=== PATIENT | female | born 1990 | race Two or more races ===

== ENCOUNTER 2017-09-03 20:31 | Inpatient (IN) | payer OTHER ==
[2017-09-03 21:26] VITALS: BMI 24.1
--- NOTE | 2017-09-03 21:57 | HP ---
CIWA Score - CIWA Score Nausea/Vomitin Muscle Tremors: 5 Anxiety: 5 Agitation: 4-Moderately Restless Paroxysmal Sweats: 3 Orientation: 0-Oriented Tacttile Disturbances: 2-Mild Itch/Numbness/Burn Auditory Disturbances: 2-Mild Harshness/Frighten Visual Disturbances: 0-None Headache: 2-Mild CIWA-Ar Total Score: 26 Admission ROS BHS - HPI Chief Complaint: C/O WITHDRAWAL SX'S. SEEKING DETOX FOR ALCOHOLISM. Allergies/Adverse Reactions: Allergies Allergy/AdvReac Type Severity Reaction Status Date / Time chocolate flavor Allergy Verified 09/03/17 21:49 peanut Allergy Verified 09/03/17 21:49 nut - unspecified AdvReac Verified 09/03/17 21:49 History of Present Illness: 27 Y.O FEMALE WITH LONG HX/O ALCOHOLISM ADMITTED TO DETOX. CLIENT WAS REFERRED BY [facility]. SHE REPORTS THAT SHE AMA FROM I AFTER 3 DAYS OF DETOX 1 DAY AGO DUE TO PERSONAL ISSUES. REPORTS PENDING LEGAL ISSUES. REPORTS LONGEST CLEAN TIME 6 MONTHS RELAPSING 10 MONTHS AGO. Exam Limitations: No Limitations - Ebola screening Have you traveled outside of the country in the last 21 days: No Have you had contact with anyone from an Ebola affected area: No Have you been sick,other than usual withdrawal symptoms: No Do you have a fever: No - Review of Systems Constitutional: Chills, Loss of Appetite, Malaise, Night Sweats EENT: reports: No Symptoms Reported Respiratory: reports: No Symptoms reported Cardiac: reports: No Symptoms Reported GI: reports: Nausea, Poor Appetite, Poor Fluid Intake, Vomiting : reports: No Symptoms Reported Musculoskeletal: reports: Back Pain Integumentary: reports: Dryness Neuro: reports: Seizure (ETOH RELATED SEIZURES) Endocrine: reports: No Symptoms Reported Hematology: reports: Easy Bruising Psychiatric: reports: Agitated, Anxious, Depressed Other Systems: Reviewed and Negative Patient History - Patient Medical History Hx Anemia: No Hx Asthma: Yes Hx Chronic Obstructive Pulmonary Disease (COPD): No Hx Cancer: No Hx Cardiac Disorders: No Hx Congestive Heart Failure: No Hx Hypertension: No Hx Hypercholesterolemia: No Hx Pacemaker: No HX Cerebrovascular Accident: No Hx Seizures: Yes (ETOH WITHDRAWAL REPORTS LAST SEIZURE TODAY) Hx Dementia: No Hx Diabetes: No Hx Gastrointestinal Disorders: Yes (PANCREATITIS) Hx Liver Disease: No Hx Genitourinary Disorders: No Hx Sexually Transmitted Disorders: No Hx Renal Disease (ESRD): No Hx Thyroid Disease: No Hx Human Immunodeficiency Virus (HIV): No Hx Hepatitis C: No Hx Depression: Yes Hx Suicide Attempt: No (PRESENTLY DENIES) Hx Bipolar Disorder: No Hx Schizophrenia: No Other Medical History: POST DEPRESSION - Patient Surgical History Past Surgical History: Yes Hx Section: Yes Anesthesia Reaction: No - PPD History Previous Implant?: Yes Documented Results: Negative w/o proof Implanted On Prior [facility] Admission?: No PPD to be Administered?: Yes - Reproductive History Patient is a Female of Child Bearing Age (11 -55 yrs old): Yes Last Menstrual Period: 08/27/17 Patient : No ([facility] [place]) - Smoking Cessation Smoking history: Current some day smoker Have you smoked in the past 12 months: Yes Aproximately how many cigarettes per day: 2 Cigars Per Day: 0 Hx Chewing Tobacco Use: No Initiated information on smoking cessation: Yes 'Breaking Loose' booklet given: 09/03/17 - Substance & Tx. History Hx Alcohol Use: Yes Hx Substance Use: No Substance Use Type: Alcohol Hx Substance Use Treatment: Yes ([facility]) - Substances Abused VODKA/ BEER Route: Oral Frequency: Daily Amount used: 1 PINT/ 12 PACK Age of first use: 24 Date of Last Use: 09/03/17 Family Disease History - Family Disease History Family History: Denies Admission Physical Exam BHS - Vital Signs Vital Signs: Vital Signs - 24 hr 09/03/17 21:24 Temperature 98.2 F Pulse Rate 105 H Respiratory 18 Rate Blood Pressure 129/83 - Physical General Appearance: Yes: Moderate Distress, Alcohol on Breath, Intoxicated, Tremorous, Irritable, Anxious, Other (DISHELVED) HEENTM: Yes: EOMI, Normocephalic, Normal Voice, JANINA, Pharynx Normal Respiratory: Yes: Chest Non-Tender, Lungs Clear, Normal Breath Sounds, No Respiratory Distress, No Accessory Muscle Use Neck: Yes: No masses,lesions,Nodules, Supple, Trachea in good position Breast: Yes: Breast Exam Deferred Cardiology: Yes: Regular Rhythm, S1, S2, Tachycardia Abdominal: Yes: Normal Bowel Sounds, Non Tender, Flat, Soft, Surgical Scar Genitourinary: Yes: Within Normal Limits Back: Yes: Normal Inspection Musculoskeletal: Yes: full range of Motion, Gait Steady Extremities: Yes: Normal Capillary Refill, Normal Range of Motion, Non-Tender, Tremors Neurological: Yes: harbour master II-XII NML intact, Fully Oriented, Alert, Motor Strength 5/5 Integumentary: Yes: Normal Color, Dry, Warm, Other (ECCHYMOTIC AREAS NOTED TO LUE) Lymphatic: Yes: Within Normal Limits - Diagnostic (1) Alcohol dependence with uncomplicated withdrawal Current Visit: Yes Status: Chronic (2) Nicotine dependence Current Visit: Yes Status: Chronic Qualifiers: Nicotine product type: cigarettes Substance use status: uncomplicated Qualified Code(s): F17.210 - Nicotine dependence, cigarettes, uncomplicated (3) Asthma Current Visit: Yes Status: Chronic Qualifiers: Asthma severity: mild Asthma persistence: intermittent Asthma complication type: unspecified Qualified Code(s): J45.20 - Mild intermittent asthma, uncomplicated (4) Alcohol related seizure Current Visit: Yes Status: Chronic Cleared for Admission [facility] - Detox or Rehab [facility] Level of Care: Medically Managed Detox Regimen/Protocol: Librium Claeared for Rehab Admission: No S Breath Alcohol Content Breath Alcohol Content: 0.206 Urine Pregancy Test - Result Urine Test Results: Negative- NO Line Present Urine Drug Screen - Results Drug Screen Negative: No Urine Drug Screen Results: BZO-Benzodiazepines
[2017-09-03] MEDS ORDERED: chlordiazePOXIDE HCL 25 MG CAPSULE PO PRN (22:13)
[2017-09-03] MEDS ORDERED: MAGNESIUM HYDROX 2400MG/30ML ORAL SUSPENSION 30 ML CUP PO PRN (22:13)
[2017-09-03] MEDS ORDERED: IBUPROFEN 400 MG TABLET (FP) PO PRN (22:13)
[2017-09-03] MEDS ORDERED: LOPERAMIDE HCL 2 MG CAPSULE PO PRN (22:13)
[2017-09-03] MEDS ORDERED: NICOTINE POLACRILEX 2 MG GUM BC PRN (22:13)
[2017-09-03] MEDS ORDERED: ACETAMINOPHEN 325 MG TABLET (FP) PO PRN (22:13)
[2017-09-03] MEDS ORDERED: P-EPHED 60MG/TRIPROLIDI 2.5MG TABLET PO PRN (22:13)
[2017-09-03] MEDS ORDERED: MAG HYDROX/AL HYDROX/SIMETH 30 ML UNIT-DOSE CUP PO PRN (22:13)
[2017-09-03] MEDS ORDERED: MAGNESIUM CITRATE 300 ML BOTTLE PO PRN (22:13)
[2017-09-03] MEDS ORDERED: ALBUTEROL SO4 2.5/IPRATROPIUM 0.5 INH SOL 3 ML VIAL.NEB. NEB PRN (22:17)
[2017-09-03] MEDS: chlordiazePOXIDE HCL 25 MG CAPSULE PO SCH (23:44)
[2017-09-03] MEDS: levETIRAcetam 500 MG TABLET (FP) PO SCH (23:44)
[2017-09-04 00:01] LABS: URINE APPEARANCE CLOUDY; URINE BILIRUBIN NEGATIVE (NEGATIVE); URINE BLOOD NEGATIVE (NEGATIVE); URINE COLOR YELLOW; URINE GLUCOSE (UA) NEGATIVE (NEGATIVE); URINE KETONE NEGATIVE (NEGATIVE); URINE NITRITE NEGATIVE (NEGATIVE); URINE PROTEIN NEGATIVE (NEGATIVE); URINE UROBILINOGEN NEGATIVE mg/dL (0.2-1.0)
[2017-09-04 00:12] LABS: URINE LEUK ESTERASE 1+ (NEGATIVE)
[2017-09-04 00:22] LABS: EPI CELLS MANY /HPF (FEW); URINE BACTERIA RARE /hpf (NONE SEEN); URINE MUCUS FEW
[2017-09-04 00:45] LABS: AMORP URATES MODERATE /hpf (NONE SEEN)
[2017-09-04] MEDS: hydrOXYzine PAMOATE 50 MG CAPSULE (FP) PO PRN ×2 (01:14→22:02)
[2017-09-04] MEDS: chlordiazePOXIDE HCL 25 MG CAPSULE PO SCH ×4 (05:38→22:02)
[2017-09-04] MEDS: MENTHOL/PHENOL 1 EACH UD MM PRN (07:07)
--- NOTE | 2017-09-04 09:05 | PN ---
S CIWA - CIWA Score Nausea/Vomitin-Mild Nausea/No Vomiting Muscle Tremors: 5 Anxiety: 4-Mod. Anxious/Guarded Agitation: 5 Paroxysmal Sweats: 2 Orientation: 1-Uncertain about Date Tacttile Disturbances: 1-Very Mild Itch/Numbness Auditory Disturbances: 0-None Visual Disturbances: 0-None Headache: 1-Very Mild CIWA-Ar Total Score: 20 BHS Progress Note (SOAP) Subjective: tremor anxiety agitation restlessness Objective: 09/04/17 09:07 Vital Signs Temperature 97.7 F 09/04/17 06:00 Pulse Rate 101 H 09/04/17 06:00 Respiratory Rate 18 09/04/17 06:00 Blood Pressure 132/75 09/04/17 06:00 O2 Sat by Pulse Oximetry (%) Laboratory Last Values Urine Color Yellow 09/03/17 23:30 Urine Appearance Cloudy 09/03/17 23:30 Urine pH 5.0 (5.0-8.0) 09/03/17 23:30 Ur Specific [place] 1.014 (1.001-1.035) 09/03/17 23:30 Urine Protein Negative (NEGATIVE) 09/03/17 23:30 Urine Glucose (UA) Negative (NEGATIVE) 09/03/17 23:30 Urine Ketones Negative (NEGATIVE) 09/03/17 23:30 Urine Blood Negative (NEGATIVE) 09/03/17 23:30 Urine Nitrite Negative (NEGATIVE) 09/03/17 23:30 Urine Bilirubin Negative (NEGATIVE) 09/03/17 23:30 Urine Urobilinogen Negative mg/dL (0.2-1.0) 09/03/17 23:30 Ur Leukocyte Esterase 1+ (NEGATIVE) H 09/03/17 23:30 Urine WBC (Auto) 4 /hpf (3-5) 09/03/17 23:30 Urine RBC (Auto) 3 /hpf (0-3) 09/03/17 23:30 Ur Epithelial Cells Many /HPF (FEW) 09/03/17 23:30 Amorphous Urates Moderate /hpf (NONE SEEN) 09/03/17 23:30 Urine Bacteria Rare /hpf (NONE SEEN) 09/03/17 23:30 Urine Mucus Few 09/03/17 23:30 lab noted Assessment: 09/04/17 09:08 withdrawal sx Plan: continue detox
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
[2017-09-04] MEDS: PRENATAL VITAMINS W/ FOLIC ACID TABLET (FP) PO SCH (10:14)
[2017-09-04] MEDS: levETIRAcetam 500 MG TABLET (FP) PO SCH ×2 (10:15→22:01)
[2017-09-04] MEDS: NICOTINE 14 MG/24 HOURS TOPICAL PATCH TD SCH (10:17)
[2017-09-04 10:35] LABS: HEMATOCRIT 36.9 % (32.4-45.2); HEMOGLOBIN 11.9 GM/dL (10.7-15.3); MCH 29.9 pg (25.7-33.7); MCHC 32.2 g/dl (32.0-36.0); MEAN CELL VOLUME 93.1 fl (80-96); MEAN PLT VOLUME 10.4 fl (7.5-11.1); PLATELET COUNT 107 K/MM3 (134-434); RBC 3.96 M/mm3 (3.60-5.2); RDW 17.6 % (11.6-15.6); WHITE BLOOD COUNT 5.4 K/mm3 (4.0-10.0)
[2017-09-04 10:52] LABS: ALBUMIN 3.2 g/dl (3.4-5.0); ANION GAP 11 (8-16); BLOOD UREA NITROGEN 11 mg/dL (7-18); CALCIUM 8.2 mg/dL (8.5-10.1); CHLORIDE 104 mmol/L (98-107); CO2 26 mmol/L (21-32); POTASSIUM 3.6 mmol/L (3.5-5.1); SODIUM 141 mmol/L (136-145)
[2017-09-04 10:58] LABS: ALK PHOS 91 U/L (45-117); BILIRUBIN,TOTAL 0.5 mg/dL (0.2-1.0); CREATININE 0.8 mg/dL (0.55-1.02); GLUCOSE,RANDOM 75 mg/dL (74-106); SGOT/AST 48 U/L (15-37); SGPT/ALT 50 U/L (12-78); TOT PROT 6.8 g/dl (6.4-8.2)
--- NOTE | 2017-09-04 11:42 | EKG ---
Test Reason : Blood Pressure : / mmHG Vent. Rate : 095 BPM Atrial Rate : 095 BPM P-R Int : 140 ms QRS Dur : 072 ms QT Int : 346 ms P-R-T Axes : 056 050 043 degrees QTc Int : 434 ms NORMAL SINUS RHYTHM NORMAL ECG NO PREVIOUS ECGS AVAILABLE Confirmed by MD ITA, CELINA ([id number]) on 09/04/2017 11:42:08 AM Referred By: Dante Royal Confirmed By:CELINA JEAN BAPTISTE MD
[2017-09-04] MEDS: guaiFENesin/D-METHORPHAN HB 10 ML UNIT-DOSE CUPS PO PRN (18:20)
[2017-09-04] MEDS: THIAMINE HCL 100 MG TABLET (FP) PO SCH (22:01)
[2017-09-04] MEDS: ALBUTEROL SO4 18 GM HFA INHALER IH PRN (22:05)
[2017-09-05] MEDS: MENTHOL/PHENOL 1 EACH UD MM PRN ×3 (02:24→15:27)
[2017-09-05] MEDS: chlordiazePOXIDE HCL 25 MG CAPSULE PO SCH ×3 (05:32→17:37)
[2017-09-05] MEDS: guaiFENesin/D-METHORPHAN HB 10 ML UNIT-DOSE CUPS PO PRN ×3 (05:33→22:04)
[2017-09-05] MEDS: levETIRAcetam 500 MG TABLET (FP) PO SCH ×2 (10:12→22:03)
[2017-09-05] MEDS: NICOTINE 14 MG/24 HOURS TOPICAL PATCH TD SCH (10:12)
[2017-09-05] MEDS: PRENATAL VITAMINS W/ FOLIC ACID TABLET (FP) PO SCH (10:12)
--- NOTE | 2017-09-05 11:14 | PN ---
S CIWA - CIWA Score Nausea/Vomitin Muscle Tremors: 3 Anxiety: 3 Agitation: 3 Paroxysmal Sweats: 2 Orientation: 0-Oriented Tacttile Disturbances: 0-None Auditory Disturbances: 0-None Visual Disturbances: 0-None Headache: 0-None Present CIWA-Ar Total Score: 14 BHS Progress Note (SOAP) Subjective: SHAKES, SWEATS ITCH/PAIN TO THROAT Objective: 09/05/17 11:11 Vital Signs Temperature 97.5 F L 09/05/17 10:23 Pulse Rate 92 H 09/05/17 10:23 Respiratory Rate 18 09/05/17 10:23 Blood Pressure 139/80 09/05/17 10:23 O2 Sat by Pulse Oximetry (%) Laboratory Last Values WBC 5.4 K/mm3 (4.0-10.0) 09/04/17 07:30 RBC 3.96 M/mm3 (3.60-5.2) 09/04/17 07:30 Hgb 11.9 GM/dL (10.7-15.3) 09/04/17 07:30 Hct 36.9 % (32.4-45.2) 09/04/17 07:30 MCV 93.1 fl (80-96) 09/04/17 07:30 MCH 29.9 pg (25.7-33.7) 09/04/17 07:30 MCHC 32.2 g/dl (32.0-36.0) 09/04/17 07:30 RDW 17.6 % (11.6-15.6) H 09/04/17 07:30 Plt Count 107 K/MM3 (134-434) L 09/04/17 07:30 MPV 10.4 fl (7.5-11.1) 09/04/17 07:30 Sodium 141 mmol/L (136-145) 09/04/17 07:30 Potassium 3.6 mmol/L (3.5-5.1) 09/04/17 07:30 Chloride 104 mmol/L (98-107) 09/04/17 07:30 Carbon Dioxide 26 mmol/L (21-32) 09/04/17 07:30 Anion Gap 11 (8-16) 09/04/17 07:30 BUN 11 mg/dL (7-18) 09/04/17 07:30 Creatinine 0.8 mg/dL (0.55-1.02) 09/04/17 07:30 Creat Clearance w eGFR > 60 (>60) 09/04/17 07:30 Random Glucose 75 mg/dL (74-106) 09/04/17 07:30 Calcium 8.2 mg/dL (8.5-10.1) L 09/04/17 07:30 Total Bilirubin 0.5 mg/dL (0.2-1.0) 09/04/17 07:30 AST 48 U/L (15-37) H 09/04/17 07:30 ALT 50 U/L (12-78) 09/04/17 07:30 Alkaline Phosphatase 91 U/L (45-117) 09/04/17 07:30 Total Protein 6.8 g/dl (6.4-8.2) 09/04/17 07:30 Albumin 3.2 g/dl (3.4-5.0) L 09/04/17 07:30 Urine Color Yellow 09/03/17 23:30 Urine Appearance Cloudy 09/03/17 23:30 Urine pH 5.0 (5.0-8.0) 09/03/17 23:30 Ur Specific [place] 1.014 (1.001-1.035) 09/03/17 23:30 Urine Protein Negative (NEGATIVE) 09/03/17 23:30 Urine Glucose (UA) Negative (NEGATIVE) 09/03/17 23:30 Urine Ketones Negative (NEGATIVE) 09/03/17 23:30 Urine Blood Negative (NEGATIVE) 09/03/17 23:30 Urine Nitrite Negative (NEGATIVE) 09/03/17 23:30 Urine Bilirubin Negative (NEGATIVE) 09/03/17 23:30 Urine Urobilinogen Negative mg/dL (0.2-1.0) 09/03/17 23:30 Ur Leukocyte Esterase 1+ (NEGATIVE) H 09/03/17 23:30 Urine WBC (Auto) 4 /hpf (3-5) 09/03/17 23:30 Urine RBC (Auto) 3 /hpf (0-3) 09/03/17 23:30 Ur Epithelial Cells Many /HPF (FEW) 09/03/17 23:30 Amorphous Urates Moderate /hpf (NONE SEEN) 09/03/17 23:30 Urine Bacteria Rare /hpf (NONE SEEN) 09/03/17 23:30 Urine Mucus Few 09/03/17 23:30 RPR Titer Nonreactive (NONREACTIVE) 09/04/17 07:30 LABS NOTED Assessment: 09/05/17 11:13 WITHDRAWAL SX SORE THROAT Plan: CONTINUE DETOX PAIN MEDS THROAT CULTURE
[2017-09-05] MEDS: ALBUTEROL SO4 18 GM HFA INHALER IH PRN (19:44)
[2017-09-05] MEDS: THIAMINE HCL 100 MG TABLET (FP) PO SCH (22:03)
[2017-09-05] MEDS: chlordiazePOXIDE 5 MG CAPSULE PO SCH (22:03)
[2017-09-06] MEDS: MENTHOL/PHENOL 1 EACH UD MM PRN ×2 (03:27→12:45)
[2017-09-06] MEDS: chlordiazePOXIDE 5 MG CAPSULE PO SCH ×3 (05:11→18:00)
[2017-09-06] MEDS: guaiFENesin/D-METHORPHAN HB 10 ML UNIT-DOSE CUPS PO PRN ×3 (05:13→22:11)
--- NOTE | 2017-09-06 09:22 | PN ---
BHS Progress Note (SOAP) Subjective: sweat tremor throat hurts Objective: 09/06/17 09:20 Vital Signs Temperature 97.3 F L 09/06/17 06:10 Pulse Rate 71 09/06/17 06:10 Respiratory Rate 18 09/06/17 06:10 Blood Pressure 111/59 09/06/17 06:10 O2 Sat by Pulse Oximetry (%) Laboratory Last Values WBC 5.4 K/mm3 (4.0-10.0) 09/04/17 07:30 RBC 3.96 M/mm3 (3.60-5.2) 09/04/17 07:30 Hgb 11.9 GM/dL (10.7-15.3) 09/04/17 07:30 Hct 36.9 % (32.4-45.2) 09/04/17 07:30 MCV 93.1 fl (80-96) 09/04/17 07:30 MCH 29.9 pg (25.7-33.7) 09/04/17 07:30 MCHC 32.2 g/dl (32.0-36.0) 09/04/17 07:30 RDW 17.6 % (11.6-15.6) H 09/04/17 07:30 Plt Count 107 K/MM3 (134-434) L 09/04/17 07:30 MPV 10.4 fl (7.5-11.1) 09/04/17 07:30 Sodium 141 mmol/L (136-145) 09/04/17 07:30 Potassium 3.6 mmol/L (3.5-5.1) 09/04/17 07:30 Chloride 104 mmol/L (98-107) 09/04/17 07:30 Carbon Dioxide 26 mmol/L (21-32) 09/04/17 07:30 Anion Gap 11 (8-16) 09/04/17 07:30 BUN 11 mg/dL (7-18) 09/04/17 07:30 Creatinine 0.8 mg/dL (0.55-1.02) 09/04/17 07:30 Creat Clearance w eGFR > 60 (>60) 09/04/17 07:30 Random Glucose 75 mg/dL (74-106) 09/04/17 07:30 Calcium 8.2 mg/dL (8.5-10.1) L 09/04/17 07:30 Total Bilirubin 0.5 mg/dL (0.2-1.0) 09/04/17 07:30 AST 48 U/L (15-37) H 09/04/17 07:30 ALT 50 U/L (12-78) 09/04/17 07:30 Alkaline Phosphatase 91 U/L (45-117) 09/04/17 07:30 Total Protein 6.8 g/dl (6.4-8.2) 09/04/17 07:30 Albumin 3.2 g/dl (3.4-5.0) L 09/04/17 07:30 Urine Color Yellow 09/03/17 23:30 Urine Appearance Cloudy 09/03/17 23:30 Urine pH 5.0 (5.0-8.0) 09/03/17 23:30 Ur Specific [place] 1.014 (1.001-1.035) 09/03/17 23:30 Urine Protein Negative (NEGATIVE) 09/03/17 23:30 Urine Glucose (UA) Negative (NEGATIVE) 09/03/17 23:30 Urine Ketones Negative (NEGATIVE) 09/03/17 23:30 Urine Blood Negative (NEGATIVE) 09/03/17 23:30 Urine Nitrite Negative (NEGATIVE) 09/03/17 23:30 Urine Bilirubin Negative (NEGATIVE) 09/03/17 23:30 Urine Urobilinogen Negative mg/dL (0.2-1.0) 09/03/17 23:30 Ur Leukocyte Esterase 1+ (NEGATIVE) H 09/03/17 23:30 Urine WBC (Auto) 4 /hpf (3-5) 09/03/17 23:30 Urine RBC (Auto) 3 /hpf (0-3) 09/03/17 23:30 Ur Epithelial Cells Many /HPF (FEW) 09/03/17 23:30 Amorphous Urates Moderate /hpf (NONE SEEN) 09/03/17 23:30 Urine Bacteria Rare /hpf (NONE SEEN) 09/03/17 23:30 Urine Mucus Few 09/03/17 23:30 RPR Titer Nonreactive (NONREACTIVE) 09/04/17 07:30 Hepatitis C Antibody 0.6 s/co ratio (0.0-0.9) 09/04/17 07:30 lab noted waiting for throat culture result Assessment: 09/06/17 09:21 withdrawal sx rule out laryngitis Plan: continue detox continue supportive management for throat hurts
[2017-09-06] MEDS: PRENATAL VITAMINS W/ FOLIC ACID TABLET (FP) PO SCH (10:12)
[2017-09-06] MEDS: levETIRAcetam 500 MG TABLET (FP) PO SCH ×2 (10:12→22:05)
[2017-09-06] MEDS: NICOTINE 14 MG/24 HOURS TOPICAL PATCH TD SCH (10:13)
[2017-09-06] MEDS: hydrOXYzine PAMOATE 50 MG CAPSULE (FP) PO PRN ×2 (14:48→23:19)
[2017-09-06] MEDS: chlordiazePOXIDE HCL 10 MG CAPSULE PO SCH (22:05)
[2017-09-06] MEDS: THIAMINE HCL 100 MG TABLET (FP) PO SCH (22:05)
[2017-09-07] MEDS: chlordiazePOXIDE HCL 10 MG CAPSULE PO SCH (05:40)
[2017-09-07] MEDS: guaiFENesin/D-METHORPHAN HB 10 ML UNIT-DOSE CUPS PO PRN (05:42)
[2017-09-07 06:07] VITALS: BP 128/81; PULSE 76; TEMP 97.3
--- NOTE | 2017-09-07 07:57 | DS ---
[facility] Detox Discharge Summary Admission Date: 09/03/17 Discharge Date: 09/07/17 - History Present History: Alcohol Dependence Additional Comments: FOLLOW UP WITH AFTER CARE PROGRAM ARRANGEMENT Pertinent Past History: ASTHMA ALCOHOL RELATED SEIZURE - Physical Exam Results Vital Signs: Vital Signs Temperature 97.3 F L 09/07/17 06:06 Pulse Rate 76 09/07/17 06:06 Respiratory Rate 19 09/07/17 06:06 Blood Pressure 128/81 09/07/17 06:06 O2 Sat by Pulse Oximetry (%) Pertinent Admission Physical Exam Findings: WITHDRAWAL SYMPTOM AND FINDING - Treatment Hospital Course: Detox Protocol Followed, Detoxed Safely, Responded well, Discharged Condition Good Patient has Accepted a Rehab Referral to: DECLINED - Medication Discharge Medications: Ambulatory Orders Levetiracetam [Levetiracetam] 500 mg PO BID 09/03/17 - Diagnosis (1) Alcohol dependence with uncomplicated withdrawal Current Visit: Yes Status: Acute (2) Alcohol related seizure Current Visit: Yes Status: Chronic (3) Asthma Current Visit: Yes Status: Chronic Qualifiers: Asthma severity: mild Asthma persistence: intermittent Asthma complication type: unspecified Qualified Code(s): J45.20 - Mild intermittent asthma, uncomplicated (4) Nicotine dependence Current Visit: Yes Status: Chronic Qualifiers: Nicotine product type: cigarettes Substance use status: uncomplicated Qualified Code(s): F17.210 - Nicotine dependence, cigarettes, uncomplicated - AMA Did Patient Leave Against Medical Advice: No
[2017-09-07] MEDS: levETIRAcetam 500 MG TABLET (FP) PO SCH (09:07)
[2017-09-07] MEDS: PRENATAL VITAMINS W/ FOLIC ACID TABLET (FP) PO SCH (09:07)
== END 2017-09-07 09:40 | disposition home or self-care (01) | DRG 775 ==
LOC: YASAS 20:31 → Y6N 20:36
PROVIDERS: ADMIT Internal Medicine; ATTEND Internal Medicine
PROC: HZ2ZZZZ Detoxification Services for Substance Abuse Treatment (ICD-10-PCS; principal; 2017-09-03)
DX: F10.230 Alcohol dependence with withdrawal, uncomplicated (principal); F17.210 Nicotine dependence, cigarettes, uncomplicated; F10.24 Alcohol dependence with alcohol-induced mood disorder; J45.20 Mild intermittent asthma, uncomplicated; J02.9 Acute pharyngitis, unspecified; G40.909 Epilepsy, unspecified, not intractable, without status epilepticus; R00.0 Tachycardia, unspecified; Z91.010 Allergy to peanuts; Z91.018 Allergy to other foods
CPT/HCPCS: 36415; 80053; 81003; 81015; 85027; 86593; 86803; 87070; 93005; 93010

== ENCOUNTER 2017-09-07 10:29 | Inpatient (IN) | payer OTHER ==
--- NOTE | 2017-09-07 11:49 | HP ---
[facility] Rehab Assess/Revision - Admission History Admitted to Rehab from: [facility] Date of Admission to Rehab: 09/07/2017 - Vital signs Vital Signs: as per chart, labs reveiwed, no sign of throat culture, patient is c/o sore throat no mild erythea, no LN, no fever - Findings Detox History & Physical reviewed: Yes Concur with findings: Yes Inpatient Rehab Admission - Initial Determination Are CD services needed?: Yes Free of communicable disease: Yes Not in need of hospitalization: Yes - Rehab Admission Criteria Comorbidities: Yes Lacks judgement: Yes Patient is meeting Inpatient Rehab admission criteria:: Yes (still feels shaky after alchol detox and sore throat)
[2017-09-07] MEDS ORDERED: LOPERAMIDE HCL 2 MG CAPSULE PO PRN (11:50)
[2017-09-07] MEDS ORDERED: MENTHOL/PHENOL 1 EACH UD MM PRN (11:50)
[2017-09-07] MEDS ORDERED: MAGNESIUM CITRATE 300 ML BOTTLE PO PRN (11:50)
[2017-09-07] MEDS ORDERED: MAG HYDROX/AL HYDROX/SIMETH 30 ML UNIT-DOSE CUP PO PRN (11:50)
[2017-09-07] MEDS ORDERED: IBUPROFEN 400 MG TABLET (FP) PO PRN (11:50)
[2017-09-07] MEDS ORDERED: hydrOXYzine PAMOATE 50 MG CAPSULE (FP) PO PRN (11:50)
[2017-09-07] MEDS ORDERED: guaiFENesin/D-METHORPHAN HB 10 ML UNIT-DOSE CUPS PO PRN (11:50)
[2017-09-07] MEDS ORDERED: NICOTINE POLACRILEX 2 MG GUM BUC PRN (11:50)
[2017-09-07] MEDS ORDERED: ALBUTEROL SO4 18 GM HFA INHALER IH PRN (11:50)
[2017-09-07] MEDS ORDERED: MAGNESIUM HYDROX 2400MG/30ML ORAL SUSPENSION 30 ML CUP PO PRN (11:50)
[2017-09-07] MEDS ORDERED: ACETAMINOPHEN 325 MG TABLET (FP) PO PRN (11:50)
[2017-09-07] MEDS ORDERED: P-EPHED 60MG/TRIPROLIDI 2.5MG TABLET PO PRN (11:50)
[2017-09-07] MEDS ORDERED: PANTOPRAZOLE 40 MG TABLET (FP) PO SCH (12:00)
[2017-09-07] MEDS ORDERED: levETIRAcetam 500 MG TABLET (FP) PO SCH (12:00)
[2017-09-07 12:05] VITALS: BP 142/72; PULSE 124; TEMP 96; BMI 25.0
[2017-09-07] MEDS ORDERED: NAPROXEN 500 MG TABLET (FP) PO SCH (12:15)
[2017-09-07] MEDS: MAG HYDROX/ALH/SMC/DPHA/LIDO 240 ML MOUTHWASH MM SCH ×2 (14:38→18:40)
[2017-09-07] MEDS ORDERED: THIAMINE HCL 100 MG TABLET (FP) PO SCH (22:00)
[2017-09-08] MEDS ORDERED: PRENATAL VITAMINS W/ FOLIC ACID TABLET (FP) PO SCH (10:00)
[2017-09-08] MEDS ORDERED: NICOTINE 14 MG/24 HOURS TOPICAL PATCH TD SCH (10:00)
== END 2017-09-07 18:35 | disposition left against medical advice (07) | DRG 770 ==
LOC: YASAS 10:29 → Y3W 12:04 → Y6N 18:27 → Y3E 18:30
PROVIDERS: ADMIT Psychiatry & Neurology Psychiatry; ATTEND Psychiatry & Neurology Psychiatry
PROC: HZ42ZZZ Group Counseling for Substance Abuse Treatment, Cognitive-Behavioral (ICD-10-PCS; principal; 2017-09-07)
DX: F10.24 Alcohol dependence with alcohol-induced mood disorder (principal); J45.909 Unspecified asthma, uncomplicated; J02.9 Acute pharyngitis, unspecified; B97.89 Other viral agents as the cause of diseases classified elsewhere

== ENCOUNTER 2018-06-02 09:11 | Inpatient (IN) | payer OTHER ==
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
[2018-06-02] MEDS ORDERED: guaiFENesin/D-METHORPHAN HB 10 ML UNIT-DOSE CUPS PO PRN (10:32)
[2018-06-02] MEDS ORDERED: IBUPROFEN 400 MG TABLET (FP) PO PRN (10:32)
[2018-06-02] MEDS ORDERED: hydrOXYzine PAMOATE 25 MG CAPSULE (FP) PO PRN (10:32)
[2018-06-02] MEDS ORDERED: ACETAMINOPHEN 325 MG TABLET (FP) PO PRN (10:32)
[2018-06-02] MEDS ORDERED: LOPERAMIDE HCL 2 MG CAPSULE PO PRN (10:32)
[2018-06-02] MEDS ORDERED: MAG HYDROX/AL HYDROX/SIMETH 30 ML UNIT-DOSE CUP PO PRN (10:32)
[2018-06-02] MEDS ORDERED: MENTHOL/PHENOL 1 EACH UD MM PRN (10:32)
[2018-06-02] MEDS ORDERED: MAGNESIUM CITRATE 300 ML BOTTLE PO PRN (10:32)
[2018-06-02] MEDS ORDERED: P-EPHED 60MG/TRIPROLIDI 2.5MG TABLET PO PRN (10:32)
[2018-06-02] MEDS ORDERED: MAGNESIUM HYDROX 2400MG/30ML ORAL SUSPENSION 30 ML CUP PO PRN (10:32)
[2018-06-02] MEDS ORDERED: ALBUTEROL SO4 8 GM HFA INHALER IH PRN (10:35)
[2018-06-02] MEDS: chlordiazePOXIDE HCL 25 MG CAPSULE PO PRN (12:15)
[2018-06-02] MEDS: BACITRACIN 0.9 GM PACKET TP SCH ×2 (12:15→23:33)
[2018-06-02 16:50] VITALS: BMI 25.6
[2018-06-02] MEDS: chlordiazePOXIDE HCL 25 MG CAPSULE PO SCH ×2 (18:22→22:15)
[2018-06-02 19:27] LABS: URINE APPEARANCE CLOUDY; URINE BILIRUBIN NEGATIVE (<2.0 mg/dL); URINE COLOR DKYELLOW; URINE GLUCOSE (UA) NEGATIVE (NEGATIVE); URINE KETONE NEGATIVE (NEGATIVE); URINE LEUK ESTERASE NEGATIVE (NEGATIVE); URINE NITRITE NEGATIVE (NEGATIVE); URINE PROTEIN NEGATIVE (NEGATIVE)
[2018-06-02 19:52] LABS: EPI CELLS MANY /HPF (FEW); URINE BACTERIA RARE /hpf (NONE SEEN); URINE MUCUS RARE
[2018-06-02] MEDS ORDERED: THIAMINE HCL 100 MG TABLET (FP) PO SCH (22:00)
[2018-06-02] MEDS ORDERED: MELATONIN 5 MG TABLETS PO PRN (22:00)
[2018-06-02] MEDS: levETIRAcetam 500 MG TABLET (FP) PO SCH (22:15)
[2018-06-03] MEDS: chlordiazePOXIDE HCL 25 MG CAPSULE PO SCH ×2 (05:59→10:40)
[2018-06-03] MEDS ORDERED: PRENATAL VITAMINS W/ FOLIC ACID TABLET (FP) PO SCH (10:00)
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
[2018-06-03 10:32] LABS: HEMATOCRIT 36.2 % (32.4-45.2); HEMOGLOBIN 11.5 GM/dL (10.7-15.3); MCH 28.9 pg (25.7-33.7); MCHC 31.9 g/dl (32.0-36.0); MEAN CELL VOLUME 90.6 fl (80-96); MEAN PLT VOLUME 11.2 fl (7.5-11.1); RBC 3.99 M/mm3 (3.60-5.2); RDW 20.6 % (11.6-15.6); WHITE BLOOD COUNT 5.6 K/mm3 (4.0-10.0)
[2018-06-03] MEDS: BACITRACIN 0.9 GM PACKET TP SCH (10:38)
[2018-06-03] MEDS: chlordiazePOXIDE HCL 25 MG CAPSULE PO PRN ×2 (10:38→14:49)
[2018-06-03] MEDS: levETIRAcetam 500 MG TABLET (FP) PO SCH (10:38)
[2018-06-03 11:08] LABS: ALBUMIN 3.4 g/dl (3.4-5.0); ALK PHOS 84 U/L (45-117); ANION GAP 15 MMOL/L (8-16); BLOOD UREA NITROGEN 9 mg/dL (7-18); CALCIUM 7.7 mg/dL (8.5-10.1); CHLORIDE 103 mmol/L (98-107); CO2 24 mmol/L (21-32); CREATININE 0.7 mg/dL (0.55-1.3); GLUCOSE,RANDOM 79 mg/dL (74-106); POTASSIUM 3.7 mmol/L (3.5-5.1); SGOT/AST 94 U/L (15-37); SGPT/ALT 91 U/L (13-61); SODIUM 142 mmol/L (136-145); TOT PROT 6.6 g/dl (6.4-8.2)
--- NOTE | 2018-06-03 12:58 | PN ---
S CIWA - CIWA Score Nausea/Vomitin-Mild Nausea/No Vomiting Muscle Tremors: 4-Moderate,w/Arms Extend Anxiety: 3 Agitation: 1-Slight > Activity (Facial moisture w/o beads of sweat.) Paroxysmal Sweats: 1-Minimal Palms Moist Orientation: 0-Oriented Tacttile Disturbances: 0-None Auditory Disturbances: 0-None Visual Disturbances: 0-None Headache: 2-Mild CIWA-Ar Total Score: 12 BHS Progress Note (SOAP) Subjective: C/o not feeling well w/ increasing anxiety. (See CIWA). Also c/o LUQ tenderness. Mild nausea w/o vomiting. C/o increased facial pain and generalized body discomfort.. Objective: Alert and oriented. Scattered facial abrasions on face, with increased erythema and yellowish drainage at middle forehead and upper lip area. Generalized facial edema noted. Abd soft. C/o tenderness deep palpation at LUQ. No guarding. No rebound tenderness. BS (+). Lungs CTA. Vital Signs 06/03/18 06/03/18 06/03/18 05:00 05:30 06:00 Temperature Pulse Rate 80 76 76 Respiratory 16 16 Rate Blood Pressure 06/03/18 06/03/18 06/03/18 06:30 07:00 07:05 Temperature 97.7 F Pulse Rate 77 77 76 Respiratory 16 Rate Blood Pressure 110/70 06/03/18 06/03/18 06/03/18 07:30 08:00 09:25 Temperature 97.9 F Pulse Rate 84 83 69 Respiratory 16 Rate Blood Pressure 98/62 Laboratory Last Values WBC 5.6 K/mm3 (4.0-10.0) 06/03/18 08:00 RBC 3.99 M/mm3 (3.60-5.2) 06/03/18 08:00 Hgb 11.5 GM/dL (10.7-15.3) 06/03/18 08:00 Hct 36.2 % (32.4-45.2) 06/03/18 08:00 MCV 90.6 fl (80-96) 06/03/18 08:00 MCH 28.9 pg (25.7-33.7) 06/03/18 08:00 MCHC 31.9 g/dl (32.0-36.0) L 06/03/18 08:00 RDW 20.6 % (11.6-15.6) H 06/03/18 08:00 Plt Count 204 K/MM3 (134-434) D 06/03/18 08:00 MPV 11.2 fl (7.5-11.1) H 06/03/18 08:00 Sodium 142 mmol/L (136-145) 06/03/18 08:00 Potassium 3.7 mmol/L (3.5-5.1) 06/03/18 08:00 Chloride 103 mmol/L (98-107) 06/03/18 08:00 Carbon Dioxide 24 mmol/L (21-32) 06/03/18 08:00 Anion Gap 15 MMOL/L (8-16) 06/03/18 08:00 BUN 9 mg/dL (7-18) 06/03/18 08:00 Creatinine 0.7 mg/dL (0.55-1.3) 06/03/18 08:00 Creat Clearance w eGFR > 60 (>60) 06/03/18 08:00 Random Glucose 79 mg/dL (74-106) 06/03/18 08:00 Calcium 7.7 mg/dL (8.5-10.1) L 06/03/18 08:00 Total Bilirubin 1.0 mg/dL (0.2-1) 06/03/18 08:00 AST 94 U/L (15-37) H 06/03/18 08:00 ALT 91 U/L (13-61) H 06/03/18 08:00 Alkaline Phosphatase 84 U/L (45-117) 06/03/18 08:00 Total Protein 6.6 g/dl (6.4-8.2) 06/03/18 08:00 Albumin 3.4 g/dl (3.4-5.0) 06/03/18 08:00 Urine Color Dkyellow 06/02/18: Urine Appearance Cloudy 06/02/18 16: Urine pH 6.0 (5.0-8.0) 06/02/18: Ur Specific [place] 1.023 (1.010-1.035) 06/02/18 16: Urine Protein Negative (NEGATIVE) 06/02/18 16: Urine Glucose (UA) Negative (NEGATIVE) 10/26/18 16:27 Urine Ketones Negative (NEGATIVE) 06/02/18 16:27 Urine Blood 1+ (NEGATIVE) H 06/02/18 16: Urine Nitrite Negative (NEGATIVE) 06/02/18 16: Urine Bilirubin Negative (<2.0 mg/dL) 06/02/18 16: Urine Urobilinogen 2.0 mg/dL (0.2-1.0) H 06/02/18 16:27 Ur Leukocyte Esterase Negative (NEGATIVE) 06/02/18 16: Urine WBC (Auto) 3 /hpf (3-5) 06/02/18 16:27 Urine RBC (Auto) 15 /hpf (0-3) 06/02/18 16:27 Ur Epithelial Cells Many /HPF (FEW) 06/02/18 16:27 Urine Bacteria Rare /hpf (NONE SEEN) 06/02/18 16: Urine Mucus Rare 06/02/18 16:27 RPR Titer Nonreactive (NONREACTIVE) 06/03/18 08:00 Labs reviewed. Assessment: Alcohol withdrawal Facial Trauma w/ cellulitis r/o GERD. Plan: Start on Keflex Start on Protonix Continue detox Cool compresses to facial area QID
[2018-06-03] MEDS ORDERED: PANTOPRAZOLE 20 MG TABLET (FP) PO SCH (13:30)
--- NOTE | 2018-06-03 14:48 | EKG ---
Test Reason : Blood Pressure : / mmHG Vent. Rate : 086 BPM Atrial Rate : 086 BPM P-R Int : 138 ms QRS Dur : 080 ms QT Int : 374 ms P-R-T Axes : 059 041 017 degrees QTc Int : 447 ms NORMAL SINUS RHYTHM POSSIBLE LEFT ATRIAL ENLARGEMENT BORDERLINE ECG WHEN COMPARED WITH ECG OF 03-SEP-2017 23:33, NO SIGNIFICANT CHANGE WAS FOUND Confirmed by MD Jone, Klaus ([id number]) on 06/03/2018 2:47:27 PM Referred By: Confirmed By:Klaus Becerril MD
--- NOTE | 2018-06-03 15:09 | PN ---
[facility] Progress Note Note: Patient platelets unable to be evaluated, as labs states clumping occurred. Will repeat platelets in am. Last results in Aug 2017 showed low platelets (107) .
[2018-06-03] MEDS ORDERED: chlordiazePOXIDE HCL 25 MG CAPSULE PO SCH (17:00)
[2018-06-03 17:25] VITALS: BP 130/71; PULSE 100; TEMP 98.3
[2018-06-03] MEDS ORDERED: CEPHALEXIN 250 MG/5 ML ORAL SUSPENSION PO SCH (18:00)
[2018-06-03] MEDS ORDERED: CEPHALEXIN MONOHYDRATE 500 MG CAPSULE (UD) PO SCH ×2 (18:00)
--- NOTE | 2018-06-03 20:52 | PN ---
[facility] Progress Note Note: MD'S NOTE: CALLED TO SEE THE PT. AT 8:40PM WHO WANTS TO SIGN OUT AMA FOR PERSONAL REASONS DESPITE ADVICE NOT TO DO SO AT THIS TIME. SO, THE PT. SIGNED OUT AMA AND ABOUT TO LEAVE THE FACILITY SOON. RECOMMENDED TO F/U WITH PMD AND OUT PT. PROGRAMS. PROVIDER: SCOTT LOVE MD
[2018-06-03] MEDS ORDERED: QUEtiapine FUMARATE 50 MG TABLET PO SCH (22:00)
[2018-06-04] MEDS ORDERED: chlordiazePOXIDE 5 MG CAPSULE PO SCH (17:00)
[2018-06-05] MEDS ORDERED: chlordiazePOXIDE HCL 10 MG CAPSULE PO SCH (17:00)
== END 2018-06-03 21:08 | disposition left against medical advice (07) | DRG 770 ==
LOC: YASAS 09:11 → Y6N 11:13
PROC: HZ2ZZZZ Detoxification Services for Substance Abuse Treatment (ICD-10-PCS; principal; 2018-06-02)
DX: F10.230 Alcohol dependence with withdrawal, uncomplicated (principal); F10.24 Alcohol dependence with alcohol-induced mood disorder; F17.211 Nicotine dependence, cigarettes, in remission; F51.05 Insomnia due to other mental disorder; G47.00 Insomnia, unspecified; J45.909 Unspecified asthma, uncomplicated; L03.211 Cellulitis of face; S09.8XXD Other specified injuries of head, subsequent encounter; S00.531D Contusion of lip, subsequent encounter; Z86.69 Personal history of other diseases of the nervous system and sense organs; Z91.81 History of falling
CPT/HCPCS: 36415; 80053; 80177; 81003; 81015; 85027; 86593; 93005; 93010